=== PATIENT | female | born 1985 | race African-American/Black ===

== ENCOUNTER 2016-04-13 18:38 | Emergency (ER) | payer BC ==
[2016-04-13] MEDS ORDERED: Prochlorperazine TAB* 10 MG PO ONE ×2 (21:42→22:00)
[2016-04-13 22:16] VITALS: BP 131/78
--- NOTE | 2016-04-13 22:33 | ED ---
Headache - HPI Summary HPI Summary: Patient is an otherwise healthy 31yo F with a PMHx of migraines with aura and scotomas presents with 1 week hx of worsening photophobia and scotomas while reading. She describes the pain as behind her right - but denies redness or tearing. She has had a recent negative MRI, and has been seen by optho Dr Gibson several times this year. She is prescribed Elavil and takes 50mg. This was recently increased from 25mg. She does not have abortive therapies at home and does not take NSAIDS d/t upset stomach. Denies ESTRADA currently, but is wondering about an abortive therapy. Appt with neurology in May. Patient is seen by Dr. Faust and Nguyễn. Denies recent fever or illness. Not worst of life, not sudden in onset. No anticoagulant usage. Takes Mg three times daily as prescribed. - History Of Current Complaint Chief Complaint: EDHeadache Stated Complaint: HEADACHE Hx Obtained From: Patient Hx Last Menstrual Period: 11/08 Onset/Duration: Started weeks ago Currently Pain Is: Current Pain Scale(0-10)= - 2 Timing: Intermittent, Lasting:, Minutes Character: Pressure - behind right eye Location of Headache: Frontal, Other: - orbital Aggravating Factor: Bright Lights Allevating Factors: Other (Noted In Comments) Associated Signs And Symptoms: Visual Changes - scotomas and aura - Risk Factors SAH Risk Factors: -Bulgarian Meningitis Risk Factors: Negative SDH Risk Factors: Negative Temporal Arteritis Risk Factors: - Allergies/Home Medications Allergies/Adverse Reactions: Allergies Allergy/AdvReac Type Severity Reaction Status Date / Time Aspirin Allergy Severe acne Verified 04/13/16 18:55 PMH/Surg Hx/FS Hx/Imm Hx Previously Healthy: Yes Endocrine/Hematology History: Denies: Hx Diabetes Cardiovascular History: Denies: Hx Hypertension, Hx Pacemaker/ICD History: Denies: Hx Dialysis, Hx Renal Disease Sensory History: Denies: Hx Contacts or Glasses, Hx Hearing Aid Opthamlomology History: Denies: Hx Contacts or Glasses Psychiatric History: Denies: Hx Panic Disorder Infectious Disease History: No Infectious Disease History: Denies: Traveled Outside the [place] in Last 30 Days - Social History Occupation: Employed Full-time Lives: Alone Alcohol Use: None Hx Substance Use: No Substance Use Type: Reports: None Hx Tobacco Use: No Smoking Status (MU): Never Smoked Tobacco Do You Chew or Dip Tobacco: No Review of Systems Constitutional: Negative Positive: Photophobia, Blurred Vision - scotoma without migraine ENT: Negative Cardiovascular: Negative Respiratory: Negative Musculoskeletal: Negative Skin: Negative Positive: Headache - mild Psychological: Normal All Other Systems Reviewed And Are Negative: Yes Physical Exam Triage Information Reviewed: Yes Vital Signs On Initial Exam: Initial Vitals Temp Pulse Resp BP Pulse Ox 98.6 F 86 16 130/73 100 04/13/16 18:40 04/13/16 18:40 04/13/16 18:40 04/13/16 18:40 04/13/16 18:40 Vital Signs Reviewed: Yes Appearance: Positive: Well-Appearing, No Pain Distress, Well-Nourished Skin: Positive: Warm, Skin Color Reflects Adequate Perfusion Head/Face: Positive: Normal Head/Face Inspection Eyes: Positive: Normal, EOMI, NORY, Conjunctiva Clear ENT: Positive: Hearing grossly normal Neck: Positive: Supple, Nontender, No Lymphadenopathy Respiratory/Lung Sounds: Positive: Clear to Auscultation, Breath Sounds Present Musculoskeletal: Positive: Normal Neurological: Positive: Normal, Sensory/Motor Intact, Alert, Oriented to Person Place, Time, Reflexes Intact, Heel to Toe - negative, Finger to Nose - negative , Facial Symmetry, Speech Normal Psychiatric: Positive: Normal, Affect/Mood Appropriate AVPU Assessment: Alert Diagnostics - Vital Signs Vital Signs Temp Pulse Resp BP Pulse Ox 04/13/16 22:15 98.0 F 80 18 131/78 04/13/16 18:40 98.6 F 86 16 130/73 100 - Laboratory Lab Statement: Any lab studies that have been ordered have been reviewed, and results considered in the medical decision making process. Headache Course/Dx - Course Course Of Treatment: Patient seeing Dr. Saunders, Dr. Gibson and PCP regularly for medication changes and follow ups with migraines. Patient does not have abortive therapy at home. D/t abd symptoms with naproxen, provider recommended compazine with naproxen for symptoms. This in addition to maintenence therapy for migraines and to follow up with PCP. No migraine currently. Sent home with compazine. Provider will defer to Chip and PCP for permanent changes or further imaging and evaluation. Not worst of life. Not sudden in onset. No anticoagulants. Similiar to previous migraines. Assessment/Plan: Follow up with Arthur Arzola and PCP. - Diagnoses Differential Diagnosis/HQI/PQRI: Migraine, Sinus Headache, Tension Headache, Other - cluster ESTRADA Provider Diagnoses: Migraine with aura Is Visit Related: No Discharge - Discharge Plan Condition: Stable Disposition: HOME Prescriptions: Naproxen [Naproxen 500 MG TABS] 500 mg PO BID #10 tab Prochlorperazine TAB* [Compazine Tab*] 10 mg PO Q6H PRN #30 tab MDD 4 PRN Reason: Pain Patient Education Materials: Migraine Headache (ED) Referrals: Nahed Diaz MD [Primary Care Provider] - Additional Instructions: Follow up with neurologist and PCP regarding chronic migraines. For abortive therapy at home: Naproxen 500mg Compazine 10mg Benadryl 25mg (at night)
== END 2016-04-13 22:15 | disposition home or self-care (01) ==
LOC: ED 18:38
DX: G43.109 Migraine with aura, not intractable, without status migrainosus (principal); R51 Headache; H53.8 Other visual disturbances
CPT/HCPCS: 99281; Q0164